=== PATIENT | female | born 1985 | race Hispanic/Latino ===

== ENCOUNTER 2016-08-15 16:30 | Emergency (ER) | payer MEDICAID ==
[~2016-08-15] VITALS: Ht 154.9 cm; Wt 77.0 kg
[~2016-08-15 16:30] MED LIST: MACROBID100 MG PO
[2016-08-15 18:31] LABS: URINE BILIRUBIN - DIPSTICK NEGATIVE (NEGATIVE); URINE BLOOD DIPSTICK LARGE (NEGATIVE); URINE CLARITY CLEAR; URINE COLOR YELLOW; URINE GLUCOSE - DIPSTICK NEGATIVE (NEGATIVE); URINE KETONE NEGATIVE (NEGATIVE); URINE LEUK ESTERASE NEGATIVE (NEGATIVE); URINE NITRITE - DIPSTICK NEGATIVE (Negative); URINE PROTEIN - DIPSTICK NEGATIVE (NEG-TRACE); URINE SPECIFIC GRAVITY 1.025
[2016-08-15 18:35] LABS: ALBUMIN 4.1 g/dL (3.2-5.0); ALKALINE PHOSPHATASE 62 u/l (38-126); ANION GAP 13 (6-22 (CALC)); BILIRUBIN, TOTAL 0.5 mg/dL (0.0-1.4); BUN 7 mg/dL (7-17); BUN/CREATININE RATIO 13 (12-20 (CALC)); CALCIUM 9.2 mg/dL (8.4-10.2); CARBON DIOXIDE 26 mmol/l (22-30); CHLORIDE 107 mmol/l (95-108); CREATININE 0.6 mg/dL (0.5-1.0); GFR > 60 ML/MIN (>=60 (CALC)); GFR FOR AFR.AMER. > 60 ML/MIN (>=60 (CALC)); GLUCOSE 86 mg/dL (65-105); POTASSIUM 3.7 mmol/l (3.5-5.1); SGOT/AST 16 u/l (14-36); SGPT/ALT 26 u/l (9-52); SODIUM 142 mmol/l (137-146)
[2016-08-15 19:56] LABS: HEMATOCRIT 38.3 % (37.0-47.0); IMMATURE GRANULOCYTES 0.1 % (0.0-1.0); MEAN CELL VOLUME 86.8 fL CALC (80.0-100.0); MEAN CORPUSCULAR HGB 29.5 pG CALC (26.0-32.0); MEAN CORPUSCULAR HGB CONC 33.9 g/L CALC (32.0-36.0); NEUT# 4.34 thou/uL (2.00-7.15); RED BLOOD COUNT 4.41 mill/uL (4.20-5.60); RED CELL DISTRI WIDTH 12.9 % (11.5-15.5)
[2016-08-15 20:12] LABS: AMYLASE 48 u/l (30-110); LIPASE 71 u/l (23-300)
[2016-08-15 21:29] LABS: URINE RBC TNTC RBC/hpf (0-5); URINE SQUAMOUS EPITHELIAL CELL FEW EPI/hpf (0-FEW)
[2016-08-15] MEDS ORDERED: FIORICET PO (22:43)
[2016-08-15 23:01] VITALS: BP 115/65
== END 2016-08-15 22:59 | disposition home or self-care (01) | DRG 392 ==
LOC: ED 16:30
PROVIDERS: Emergency Medicine
DX: R10.9 Unspecified abdominal pain (principal); F41.9 Anxiety disorder, unspecified; N83.202 Unspecified ovarian cyst, left side; G43.909 Migraine, unspecified, not intractable, without status migrainosus